=== PATIENT | female | born 1985 | race African-American/Black ===

== ENCOUNTER 2017-08-08 08:24 | Emergency (ER) | payer MEDICAID, MEDICARE, OTHER ==
[~2017-08-08] VITALS: Ht 157.5 cm; Wt 97.0 kg
[2017-08-08 08:33] VITALS: BP 141/84
== END 2017-08-08 10:04 | disposition home or self-care (01) ==
LOC: ER 09:13
DX: R20.2 Paresthesia of skin (principal); K21.9 Gastro-esophageal reflux disease without esophagitis; F17.200 Nicotine dependence, unspecified, uncomplicated
CPT/HCPCS: 81025; 82962; 99282

== ENCOUNTER 2020-08-15 13:40 | Emergency (ER) | payer MEDICAID, MEDICARE ==
[~2020-08-15] VITALS: Ht 170.2 cm; Wt 110.0 kg
[2020-08-15 14:05] VITALS: BP 133/73
[2020-08-15 15:54] LABS: CLARITY URINE CLOUDY (CLEAR); COLOR URINE YELLOW (YELLOW); KETONES URINE TRACE (NEGATIVE); LEUKOCYTE ESTERASE URINE TRACE (NEGATIVE); NITRITE URINE NEGATIVE (NEGATIVE); OCCULT BLOOD URINE NEGATIVE (NEGATIVE); PH URINE 5.5 (4.5-8.0); PROTEIN URINE NEGATIVE (NEGATIVE); SPECIFIC GRAVITY URINE 1.022 (1.005-1.030); UROBILINOGEN URINE 0.2 E.U./dL (0.2-1.0)
[2020-08-15] MEDS ORDERED: FLUC150T5 MT (17:15)
[2020-08-18 04:10] LABS: NEISSERIA GONORRHOEAE NAA Negative (Negative)
== END 2020-08-15 17:55 | disposition home or self-care (01) ==
LOC: ER 14:05
DX: N89.8 Other specified noninflammatory disorders of vagina (principal); B37.9 Candidiasis, unspecified
CPT/HCPCS: 81003; 87210; 87491; 87591; 99283; Z7610

== ENCOUNTER 2021-04-28 17:56 | Emergency (ER) | payer MEDICAID, OTHER ==
[~2021-04-28] VITALS: Ht 157.5 cm; Wt 93.0 kg
[~2021-04-28 17:56] MED LIST: FLUC150T5 MT
[2021-04-28 22:15] VITALS: BP 116/71
[2021-04-28] MEDS ORDERED: CYCLOBENZAPRINE 10MG TABLET PO ONE (22:15)
[2021-04-28] MEDS ORDERED: IBUPROFEN 600MG TABLET PO ONE (22:15)
[2021-04-28] MEDS ORDERED: CYCL10TA7 MT (23:06)
[2021-04-28] MEDS ORDERED: IBUP-2029 MT (23:06)
[2021-04-28] MEDS ORDERED: CYCLOBENZAPRINE 10MG TABLET PO SCH (23:30)
== END 2021-04-29 00:23 | disposition home or self-care (01) ==
LOC: ER 17:56
DX: M25.561 Pain in right knee (principal)
CPT/HCPCS: 73560; 99283

== ENCOUNTER 2021-09-03 21:41 | Emergency (ER) | payer MEDICAID, OTHER ==
[~2021-09-03] VITALS: Ht 160 cm; Wt 88.0 kg
[~2021-09-03 21:41] MED LIST changes: +CYCL10TA7 MT; +IBUP-2029 MT
[2021-09-03 22:02] VITALS: BP 125/71
== END 2021-09-04 02:59 | disposition left against medical advice (07) ==
LOC: ER 21:41
DX: Z53.21 Procedure and treatment not carried out due to patient leaving prior to being seen by health care provider (principal)
CPT/HCPCS: 93005

== ENCOUNTER 2021-12-08 08:56 | Emergency (ER) | payer MEDICAID ==
[~2021-12-08] VITALS: Ht 157.5 cm; Wt 91.0 kg
[~2021-12-08 08:56] MED LIST changes: +CYCL10TA21 MT; -CYCL10TA7 MT; +FLUC150T46 MT; -FLUC150T5 MT
[2021-12-08] MEDS ORDERED: ONDANSETRON HCL 4MG/2ML INJ IV ONE (10:45)
[2021-12-08] MEDS ORDERED: FAMOTIDINE 20MG/2ML VIAL IV ONE (10:45)
[2021-12-08] MEDS ORDERED: MAGNESIUM/ALUMINUM HYDROXIDE/SIMETHICONE 30ML UDC PO ONE (10:45)
[2021-12-08 11:48] LABS: BASOPHILS % 0.8 % (0.0-2.0); HEMATOCRIT. 35.7 % (36.0-48.0); HEMOGLOBIN. 11.4 g/dL (12.0-16.0); LYMPHOCYTES % 45.9 % (20.0-50.0); MEAN CORPUSCULAR VOLUME 84.2 fL (81.0-99.0); MEAN PLATELET VOLUME 9.6 fl (7.4-10.4); MONOCYTES % 6.5 % (2.0-8.0); NEUTROPHILS % 45.8 % (40.0-76.0); PLATELET 320 x1000/uL (130-400); RED BLOOD CELL COUNT 4.24 mill/uL (4.2-5.4); RED CELL DISTRIBUTION WIDTH 15.6 % (11.6-14.6)
[2021-12-08 11:56] LABS: CHLORIDE 108 mEq/L (98-107)
[2021-12-08 12:02] LABS: CLARITY URINE CLOUDY (CLEAR); COLOR URINE YELLOW (YELLOW); KETONES URINE NEGATIVE (NEGATIVE); LEUKOCYTE ESTERASE URINE NEGATIVE (NEGATIVE); NITRITE URINE NEGATIVE (NEGATIVE); OCCULT BLOOD URINE NEGATIVE (NEGATIVE); PROTEIN URINE NEGATIVE (NEGATIVE); SPECIFIC GRAVITY URINE 1.022 (1.005-1.030)
[2021-12-08 12:10] VITALS: BP 112/66
[2021-12-08 12:21] LABS: PROTHROMBIN TIME 10.5 sec (9.6-11.0)
[2021-12-08] MEDS ORDERED: LIDO700A30 TP (14:21)
[2021-12-08] MEDS ORDERED: CYCL10TA21 MT (14:21)
== END 2021-12-08 14:36 | disposition home or self-care (01) ==
LOC: ER 08:56
DX: R07.9 Chest pain, unspecified (principal); M62.838 Other muscle spasm; K29.70 Gastritis, unspecified, without bleeding; K21.9 Gastro-esophageal reflux disease without esophagitis; Z98.890 Other specified postprocedural states
CPT/HCPCS: 36415; 71045; 80053; 81003; 83690; 85025; 85610; 93005; 96374; 96375; 99285; J2405; J3490

== ENCOUNTER 2023-09-26 11:44 | Emergency (ER) | payer MEDICAID, OTHER ==
[~2023-09-26] VITALS: Ht 154.9 cm; Wt 77.0 kg
[~2023-09-26 11:44] MED LIST changes: +LIDO700A30 TP
[2023-09-26 12:13] VITALS: O2SAT 100
[2023-09-26 12:49] LABS: BASOPHILS % 0.5 % (0.0-2.0); EOSINOPHILS % 1.4 % (0.0-5.0); HEMATOCRIT. 36.9 % (36.0-48.0); HEMOGLOBIN. 11.8 g/dL (12.0-16.0); LYMPHOCYTES % 42.5 % (20.0-50.0); MEAN CORPUSCULAR HEMOGLOBIN 27.9 pg (28.0-32.0); MEAN CORPUSCULAR HGB CONC 31.9 g/dL (31.0-37.0); MEAN CORPUSCULAR VOLUME 87.5 fL (81.0-99.0); MEAN PLATELET VOLUME 8.5 fl (7.4-10.4); MONOCYTES % 7.8 % (2.0-8.0); NEUTROPHILS % 47.8 % (40.0-76.0); PLATELET 264 x1000/uL (130-400); RED BLOOD CELL COUNT 4.22 mill/uL (4.2-5.4); RED CELL DISTRIBUTION WIDTH 16.8 % (11.6-14.6); WHITE BLOOD COUNT 3.6 x1000/uL (4.5-11.0)
[2023-09-26 12:53] LABS: CHLORIDE 108 mEq/L (98-107); POTASSIUM 4.1 mEq/L (3.5-5.1); SODIUM 139 mEq/L (136-145)
[2023-09-26 12:54] LABS: CARBON DIOXIDE 22 mEq/L (21-32)
[2023-09-26 12:55] LABS: CALCIUM 9.4 mg/dL (8.7-10.4)
[2023-09-26 12:58] LABS: HCG SCREEN NEGATIVE
[2023-09-26 12:59] LABS: CREATININE 0.7 mg/dL (0.6-1.0); GLUCOSE 84 mg/dL (70-105); UREA NITROGEN BLOOD 8 mg/dL (9-23)
[2023-09-26 13:13] LABS: CLARITY URINE CLEAR (CLEAR); COLOR URINE YELLOW (YELLOW); GLUCOSE URINE NEGATIVE (NEGATIVE); KETONES URINE NEGATIVE (NEGATIVE); LEUKOCYTE ESTERASE URINE NEGATIVE (NEGATIVE); NITRITE URINE NEGATIVE (NEGATIVE); OCCULT BLOOD URINE TRACE (NEGATIVE); PH URINE 6.5 (4.5-8.0); PROTEIN URINE NEGATIVE (NEGATIVE); SPECIFIC GRAVITY URINE 1.006 (1.005-1.030); UROBILINOGEN URINE 0.2 E.U./dL (0.2-1.0)
[2023-09-26 13:31] LABS: BACTERIA URINE TRACE; RBC URINE 0-2 /hpf (0-2); SQUAMOUS EPITHELIAL CELL URINE 1+ /lpf (RARE/1+)
[2023-09-26] MEDS ORDERED: NITR-87 MT (14:25)
[2023-09-26 14:39] VITALS: BP 136/76; PULSE 95; RESP 15; TEMP 98.4
== END 2023-09-26 14:41 | disposition home or self-care (01) ==
LOC: ER 11:44
DX: N39.0 Urinary tract infection, site not specified (principal); R05.9 Cough, unspecified
CPT/HCPCS: 80048; 81003; 81025; 84703; 85025; 36415; 71045; 99284; Z7610 ×3

== ENCOUNTER 2024-11-05 22:19 | Emergency (ER) | payer OTHER ==
[~2024-11-05] VITALS: Ht 170.2 cm; Wt 73.0 kg
[~2024-11-05 22:19] MED LIST changes: +NITR-87 MT
[2024-11-05 22:21] VITALS: BP 130/80; PULSE 84; RESP 16; TEMP 36.8; O2SAT 100
[2024-11-05] MEDS: MAGNESIUM/ALUMINUM HYDROXIDE/SIMETHICONE 30ML UDC PO ONE (23:00)
[2024-11-05] MEDS: VISCOUS LIDOCAINE 2% 15 ML UDC MM ONE (23:00)
[2024-11-05] MEDS: ACETAMINOPHEN 325MG TABLET PO ONE (23:02)
[2024-11-05] MEDS: ONDANSETRON 4MG ODT PO ONE (23:02)
[2024-11-05 23:25] LABS: BASOPHILS % 0.3 % (0.0-2.0); EOSINOPHILS % 3.1 % (0.0-5.0); HEMATOCRIT. 36.0 % (36.0-48.0); HEMOGLOBIN. 12.0 g/dL (12.0-16.0); LYMPHOCYTES % 55.4 % (20.0-50.0); MEAN PLATELET VOLUME 8.3 fl (7.4-10.4); MONOCYTES % 3.6 % (2.0-8.0); NEUTROPHILS % 37.6 % (40.0-76.0); PLATELET 326 x1000/uL (130-400); RED BLOOD CELL COUNT 3.97 mill/uL (4.2-5.4); RED CELL DISTRIBUTION WIDTH 13.8 % (11.6-14.6)
[2024-11-05 23:34] LABS: HCG SCREEN NEGATIVE
[2024-11-05 23:35] LABS: CREATININE 0.8 mg/dL (0.6-1.0); UREA NITROGEN BLOOD 7 mg/dL (9-23)
[2024-11-05 23:36] LABS: ETHANOL BLOOD 251 mg/dL (<10)
[2024-11-05 23:37] LABS: ASPARTATE AMINOTRANSFERASE 33 IU/L (<34); BILIRUBIN DIRECT 0.1 mg/dL (<=3.0)
[2024-11-05 23:38] LABS: BILIRUBIN TOTAL 0.5 mg/dL (0.1-1.0); PROTEIN TOTAL 7.7 g/dL (6.0-8.3)
[2024-11-06] MEDS ORDERED: MAG355OR21 MT (00:42)
[2024-11-06] MEDS ORDERED: ONDA4TAB50 MT (00:42)
== END 2024-11-06 01:50 | disposition home or self-care (01) ==
LOC: ER 22:19
DX: R10.13 Epigastric pain (principal); D25.9 Leiomyoma of uterus, unspecified; F10.90 Alcohol use, unspecified, uncomplicated; Z79.899 Other long term (current) drug therapy
CPT/HCPCS: 80076; 80048; 80320; 84703; 83690; 85025; 36415; 99284; 74176; Q0162; G0480